=== PATIENT | male | born 1965 | race Caucasian/White ===

== ENCOUNTER 2024-10-17 10:15 | Outpatient (AMB) | payer OTHER, SELFPAY ==
--- OUTSIDE RECORDS SUMMARY | 2024-10-17 11:32 | XMS_ITS | Encounter Summary ---
Author Organization [facility] Address [address] [place] [address] Care Team Providers Care Collar Setter Name Role Phone Macho Milligan MD Primary Care Provider [phone] Encounter Details Date Type Department Care Team ([facility] st Contact Info) Description 12/18/2019 Lab Requisition [facility] [address] [place] [address] Venkata Nicolas PA-C [address] [place] [id number] Social History Tobacco Use Types Packs/Day Years Used Date Smoking Tobacco: Never Assessed Sex and Gender Information Value Date Recorded Sex Assigned at Male 04/05/2023 6:57 PM EDT Legal Sex Male 11:13 AM EDT Gender Identity Male 04/05/2023 6:57 PM EDT Sexual Orientation Homosexual (lesbian or larios) 1 6:57 PM EDT documented as of this encounter Plan of Treatment Not on file documented as of this encounter Procedures Procedure Name Priority Date/Time Associated Diagnosis Comments (REPORT) SARS COV-2 RNA (COVID-19), QUAL Routine 12/18/2019 11:13 AM EDT documented in this encounter Results * SARS CoV-2 RNA (COVID-19), Qual (12/18/2019 11:13 AM EDT) SARS CoV 2 RNA, Qual Not Detected Not Detected 12/20/2019 12:23 PM EDT WHITNEY BRYAN Comment: A Not Detected (negative) test result for this test means that SARS-CoV-2 RNA was not present in the specimen above the limit of detection. A negative result does not rule out the possibility of COVID-19 and should not be used as the sole basis for treatment or patient management decisions. ??If COVID-19 is still suspected, based on exposure history together with other clinical findings, re-testing should be considered in consultation with public health authorities. Laboratory test results should always be considered in the context of clinical observations and epidemiological data in making a final diagnosis and patient management decisions. ? Please review the 'Fact Sheets' and FDA authorized labeling available for health care providers and patients using the following websites: https://[email or web address].Sellsy/home/Covid-19/HCP/ [facility]/fact-sheet.html https://[email or web address].Sellsy/home/Covid-19/ Patients/[facility]/fact-sheet.html This test has been authorized by the FDA under an Emergency Use Authorization (EUA) for use by authorized laboratories. ? Due to the current public health emergency, [facility] is receiving a high volume of samples from a wide variety of swabs and media for COVID-19 testing. In order to serve patients during this public health crisis, samples from appropriate clinical sources are being tested. Negative test results derived from specimens received in non-commercially manufactured viral collection and transport media, or in media and sample collection kits not yet authorized by FDA for COVID-19 testing should be cautiously evaluated and the patient potentially subjected to extra precautions such as additional clinical monitoring, including collection of an additional specimen. Methodology: ??Nucleic Acid Amplification Test (NAAT) includes PCR or TMA ? Additional information about COVID-19 can be found at the [facility] website: [email or web address] Test Performed at: [facility] [address] [place], [place] ??[id number] Gurwinder Benoit M.D., Ph.D.,Director of Laboratories Microbiology Nasopharyngeal swab / Unknown 12/18/2019 11:13 AM EDT 12/18/2019 11:13 AM EDT Narrative WHITNEY BRYAN - 12/20/2019 12:23 PM EDT [facility] License number [id number] Venkata Nicolas PA-C BODY FLUIDS AND STOOLS OR DERABLES Final Result WHITNEY BRYAN documented in this encounter Visit Diagnoses Not on filedocumented in this encounter Care Teams Collar Setter Relationship Specialty Start Date End Date Macho Milligan MD PCP - General Internal Medicine 09/03/23 documented as of this encounter
--- OUTSIDE RECORDS SUMMARY | 2024-10-17 11:32 | XMS_ITS | Encounter Summary ---
Author Organization [facility] Address [address] [place] [address] Care Team Providers Care Graphite Mill Operator Name Role Phone Macho Milligan MD Primary Care Provider [phone] Encounter Details Date Type Department Care Team ([facility] Contact Info) Description 07/31/2023 Scanned Document [facility] Department of Pulmonology [address] [place] [id number] Pulmonary, Scan Social History Tobacco Use Types Packs/Day Years [...] on file documented as of this encounter Visit Diagnoses Not on filedocumented in this encounter Care Teams Graphite Mill Operator Relationship Specialty Start Date End Date Macho Milligan MD PCP - General Internal Medicine 09/03/23 documented as of this encounter
--- OUTSIDE RECORDS SUMMARY | 2024-10-17 11:32 | XMS_ITS | Data Portability ---
Author Organization [facility], [facility] Address [address] [place] [address] Care Team Providers Care Family Consumer Scientist Name Role Phone DUANE SAINI Referring Provider DUANE SAINI Primary Care Provider [phone] Assessment Encounter Date Assessment Date Assessment LastModified by Organization Details LastModified Time 09/05/2024 09/05/2024 Assessment: Improved sit-stand transfers and gait without cane for short distances. Plan: Continue per updated orders 2x/wk. [email or web address] Not available 09/05/2024 13:59:00 09/08/2024 09/08/2024 Assessment: Weekly increase with motion and functional activities including stairs and driving. Plan: Continue short course of rehab and progress independence with HEP. [email or web address] Not available 09/08/2024 12:23:50 09/12/2024 09/12/2024 Assessment: Weekly increase with motion and functional activities including stairs and driving. Plan: Continue 1 more visit and progress independence with HEP. Not available 09/12/2024 12:46:32 09/15/2024 09/15/2024 Assessment: Weekly increase with motion and functional activities including stairs and driving. Good results Plan: D/c to HEP. Not available 09/14/2024 20:56:04 Plan of Treatment Reminders Order Date Submit Date Provider Last Modified By Organization Details Last Modified Time Details Appointments RECHECK 10 2024 09:00A Aurora Lerma MD Not available Not available Not available Lab None recorded . Referral None recorded . Procedures None recorded . Surgeries None recorded . Imaging XR, hip + pelvis, unilater al, 2 or 3 view - 2v right hip, rm 202 2024 025 [facility], [address], [place], [address], 09/16/2024 09:22:18 Medication Orders None recorded . Patient TargetsNo targets recorded. Patient InstructionsNo instructions recorded. Reason for Referral None Reported. Results Created Date Observation Date Name Description Value Unit Range Abnormal Flag Note LastModifiedBy Organization Detail LastModifiedTime 08/17/1908/16/2024 imagi ng inter preta tion No observ ation [facility] ed. [facility] [address], [address], 08/17/2024 07:42:49 08/17/19 25 08/16/2024 imagi ng inter preta tion No observ ation record ed. [facility] [address], [address], 08/17/2024 07:42:37 09/03/19 25 09/02/2024 XR, hip + pelvi s, unila teral , 2 or 3 view http:/ [email or web address] ?Encry pted=s hAaTro YD8dLq bEUv6g %2BXZw aYqtaq 0bqfl% 2Fg9IQ a4ajBk vP9nXo QUaueC m3YtLR FvZlgJ JJ8mAn HZtai3 0o5794 AC0KqY [facility] gKiQtr MwF INTERFACE [facility] [address], [place], [address], 09/02/2024 09:28:15 09/03/19 25 09/02/2024 XR, hip + pelvi s, unila teral , 2 or 3 view http:/ [email or web address] ?Encry pted=s hAaTro YD8dLq bEUv6g %2BXZw aYqtaq 0bqfl% 2Fg9IQ a4ajBk vP9nXo QUaueC m3YtLR FvZlgJ [place] HZtai3 2t9439 AC0KqY niBUKC gKiQtr MwF INTERFACE [facility] [address], [place], [address], 09/02/2024 09:28:17 09/17/19 25 09/16/2024 XR, hip + pelvi s, unila teral , 2 or 3 view http:/ [email or web address] ?Encry pted=s hAaTro YD8dLq bEUv6g %2BXZw aYqtaq 0bqfl% 2Fg9IQ a4ajBk vP9nXo QUaueC m3YtLR FvZlgJ JJ8mAn HZtai3 3s3335 AC0KqY 3%2BFU qShKiQ trMwF INTERFACE [facility] [address], [place], [address], 09/16/2024 09:22:19 09/17/19 25 09/16/2024 XR, hip + pelvi s, unila teral , 2 or 3 view http:/ [email or web address] ?Encry pted=s hAaTro YD8dLq bEUv6g %2BXZw aYqtaq 0bqfl% 2Fg9IQ a4ajBk vP9nXo QUaueC m3YtLR FvZl JJ8mAn HZtai3 0a0744 AC0KqY 3%2BFU qShKiQ trMwF INTERFACE [facility] [address], [place], [address], 09/16/2024 09:22:21 Result Notes None recorded. Problems Name Problem SNOMED Code Status Onset Date Resolution Date Notes Provider Name and Address Organization Details Recorded Time Fracture of knee 092853416 Active 2023 NORMABEREKET mueller [place] - [facility] 09/05/202 4 17:30:48 Closed fracture proximal tibia, lateral condyle (plateau) 058163812 Active 2023 Regulo Montenegro MD [address], [place], [address], [facility] 4 17:55:59 Osteonecros is of head of femur 584765060 Active 2023 George Lerma MD [address], [place], [address], [facility] 4 11:19:39 Pain of right hip joint 3937946357652 02 Active 2023 MICHELLE MONTIEL [facility] 4 18:01:52 Problem Notes None recorded. Procedures Surgical History Date Name Laterality Status Provider Name and Address Organization Details Recorded Time 5 22523: Therapeutic Activities (1:1) completed Ortiz Maderaser, PT [address], [place], [address], [facility] 09/14/2024 20:52:16 5 27914 Therapeutic Exercise (1:1) completed Ortiz Maderaser, PT [address], [place], [address], [facility] 09/14/2024 20:52:16 5 17633: Gait training completed Ortiz De Paz, PT [address], [place], [address], [facility] 09/14/2024 20:52:16 5 63196: Therapeutic Activities (1:1) completed Ortiz Pyser, PT [address], [place], [address], [facility] 09/12/2024 12:50:40 5 71576 Therapeutic Exercise (1:1) completed Ortiz Maderaser, PT [address], [place], [address], [facility] 09/09/2024 07:45:16 5 86384: Gait training completed Ortiz De Paz, PT [address], [place], [address], [facility] 09/12/2024 12:46:52 5 05808: Therapeutic Activities (1:1) completed Nolberto Carter, AT [address], [place], [address], [facility] 09/08/2024 12:18:51 5 49915 Therapeutic Exercise (1:1) completed Nolberto Carter, AT [address], [place], [address], [facility] 09/08/2024 12:20:10 5 33259: Gait training completed Nolberto Carter, AT [address], [place], [address], [facility] 09/08/2024 12:18:51 5 16632: Therapeutic Activities (1:1) completed Nolberto Carter, AT [address], [place], [address], [facility] 09/05/2024 13:54:03 5 04054 Therapeutic Exercise (1:1) completed Nolberto Carter, AT [address], [place], [address], [facility] 09/05/2024 13:58:13 5 54161: Gait training completed Nolberto Carter, AT [address], [place], [address], [facility] 09/05/2024 13:54:02 5 32331: Manual therapy completed Nolberto Carter, AT [address], [place], [address], [facility] 09/05/2024 13:54:03 5 78767: Therapeutic Activities (1:1) completed Nolberto Carter, AT [address], [place], [address], [facility] 09/01/2024 08:31:15 5 53450 Therapeutic Exercise (1:1) completed Nolberto Carter, AT [address], [place], [address], [facility] 09/01/2024 08:30:42 5 29557: Gait training completed Nolberto Carter, AT [address], [place], [address], [facility] 09/01/2024 08:30:57 5 00431: Manual therapy completed Nolberto Carter, AT [address], [place], [address], [facility] 09/01/2024 08:30:50 5 05924 Therapeutic Exercise (1:1) completed Johnson Bender, PT [address], [place], [address], [facility] 08/28/2024 09:47:17 5 41423: Low complexity PT Eval completed Johnson Bender, PT [address], [place], [address], [facility] 08/28/2024 09:47:19 5 05464 Therapeutic Exercise (1:1) completed Ortiz De Paz, PT [address], [place], [address], [facility] 07/21/2024 20:02:04 5 27400: Low complexity PT Eval completed Ortiz De Paz, PT [address], [place], [address], [facility] 07/21/2024 20:02:10 Imaging Results Imaging Date Name Status LastModified by Organization Details LastModified Time 08/16/2024 imaging interpretation completed [email or web address] [address] [place], [address], 08/17/2024 07:42:49 08/16/2024 imaging interpretation completed [email or web address] [address], [address], 08/17/2024 07:42:37 09/02/2024 XR, hip + pelvis, unilateral, 2 or 3 view completed INTERFACE [facility] [address], [place], [address], 09/02/2024 09:28:15 09/02/2024 XR, hip + pelvis, unilateral, 2 or 3 view completed INTERFACE [facility] [address], [place], [address], 09/02/2024 09:28:17 09/16/2024 XR, hip + pelvis, unilateral, 2 or 3 view completed [facility] [address], [place], [address], 09/16/2024 09:22:19 09/16/2024 XR, hip + pelvis, unilateral, 2 or 3 view completed [facility] [address], [place], [address], 09/16/2024 09:22:21 Procedure Notes None recorded. Medical Equipment None Reported. Allergies Allergen ID Allergen Name Allergen Category Reaction Reaction Severity Criticality Documentation Date Start Date Code Code System Note Provider Name and Address Organization Details Recorded Time 153709 tetracycl ine medicatio n hives mild Not available 02/23/2024 44368 RxNorm Dezarihéctor mueller [place] - [facility] 14:51:32 387726 erythromy kelley medicatio n abdominal pain mild Not available 02/23/2024 4053 RxNorm Sharmaine mueller [place] [facility] 14:51:32 917025 Penicilli n Not available hives moderate Not available 02/23/2024 51355 RxNorm Deriorihéctor mueller [place] - [facility] 4 14:51:32 Medications Name Sig Start Date Stop Date Status Note LastModified by Organization Details LastModified Time quetiapine 25 mg tablet TAKE 1 TO 2 TABLETS BY MOUTH AT BEDTIME NEEDED FOR SLEEP active Not Available Not Available No t Available celecoxib 200 mg capsule TAKE 1 CAPSULE BY MOUTH EVERY DAY active Not Available Not Available No t Available prednisone 10 mg tablet TAKE 4 TABLETS BY MOUTH DAILY. 02/17 completed Not Available Not Available Not Available doxycycline hyclate 100 mg capsule TAKE 1 CAPSULE BY MOUTH TWICE A DAY active Not Available Not Available No t Available ropinirole 1 mg tablet 2 tablets twice a day by oral route. active Not Available Not Available No t Available divalproex 250 mg tablet,joe yed release active Not Available Not Available Not Available azithromyci n 250 mg tablet TAKE 2 TABLETS BY MOUTH TODAY, THEN TAKE 1 TABLET DAILY FOR 4 DAYS DIRECTED active Not Available Not Available No t Available benzonatate 200 mg capsule TAKE 1 CAPSULE BY MOUTH EVERY 8 HOURS NEEDED FOR COUGH 03/29 completed Not Available Not Available Not Available metoprolol succinate ER 50 mg tablet,exte nded release 24 hr TAKE 1 TABLET BY MOUTH DAILY active Not Available Not Available No t Available valacyclovi r 1 gram tablet 1 tablet every day by oral route. active Not Available Not Available No t Available prednisone 20 mg tablet TAKE 2 TABLETS BY MOUTH DAILY 5 DAYS active Not Available Not Available No t Available sertraline 100 mg tablet 1 tablet every day by oral route. 03/29 completed Not Available Not Available Not Available diphenoxyla te-atropine 2.5 mg-0.025 mg tablet TAKE 1 TABLET BY MOUTH EVERY 6 HOURS NEEDED DIARRHEA 02/17 completed Not Available Not Available Not Available amlodipine 5 mg tablet TAKE 1 TABLET BY MOUTH EVERY DAY active Not Available Not Available No t Available tramadol 50 mg tablet TAKE 1 TO 2 TABLETS BY MOUTH EVERY 6 HOURS NEEDED FOR MILD PAIN. DO NOT EXCEED 8 TABLETS (400MG) PER DAY. active Not Available Not Available No t Available bupropion HCl SR 100 mg tablet,12 hr sustained-r elease active Not Available Not Available Not Available tamsulosin 0.4 mg capsule TAKE 1 CAPSULE BY MOUTH DAILY active Not Available Not Available No t Available benzonatate 100 mg capsule TAKE 2 CAPSULE (ORAL) 2 TO 3 TIMES PER DAY (COUGH) FOR 5 DAYS active Not Available Not Available No t Available ropinirole 2 mg tablet TAKE 1 TABLET BY MOUTH TWICE A DAY active Not Available Not Available No t Available cephalexin 500 mg capsule TAKE 1 CAPSULE BY MOUTH FOUR TIMES A DAY active Not Available Not Available No t Available pantoprazol e 40 mg tablet,joe yed release TAKE 1 TABLET BY MOUTH DAILY DIRECTED active Not Available Not Available No t Available buspirone 10 mg tablet active Not Available Not Available Not Available divalproex ER 500 mg tablet,exte nded release 24 hr TAKE 1 TABLET BY MOUTH EVERY DAY active Not Available Not Available No t Available sertraline 25 mg tablet active Not Available Not Available Not Available gabapentin 100 mg capsule TAKE TWO CAPSULES DAILY AT BEDTIME active Not Available Not Available No t Available cefuroxime axetil 500 mg tablet TAKE 1 TABLET BY MOUTH TWICE A DAY FOR 10 DAYS 02/17 completed Not Available Not Available Not Available levofloxaci n 500 mg tablet active Not Available Not Available Not Available ipratropium bromide 42 mcg (0.06 %) nasal spray PLEASE SEE ATTACHED FOR DETAILED DIRECTION S active Not Available Not Available No t Available ondansetron 4 mg disintegrat ing tablet Place 1 tablet every 6 hours by transling ual route for 10 days. active Not Available Not Available No t Available losartan 100 mg tablet TAKE 1 TABLET BY MOUTH DAILY active Not Available Not Available No t Available lamotrigine 100 mg tablet active Not Available Not Available Not Available oxycodone 5 mg tablet TAKE 1 TO 2 TABLETS BY MOUTH EVERY 4 HOURS NEEDED FOR SEVERE PAIN active Not Available Not Available No t Available bupropion HCl SR 200 mg tablet,12 hr sustained-r elease TAKE 1 TABLET BY MOUTH EACH AT 8 AM 02/17 completed Not Available Not Available Not Available rosuvastati n 5 mg tablet TAKE 1 TABLET BY MOUTH DAILY active Not Available Not Available No t Available quetiapine 50 mg tablet TAKE 1 TABLET BY MOUTH EVERYDAY AT BEDTIME active Not Available Not Available No t Available levocetiriz ine 5 mg tablet active Not Available Not Available Not Available Dulera active Not Available Not Availa ble Not Available sodium,pota ssium,mag sulfates 17.5 gram-3.13 gram-1.6 gram oral soln USE DIRECTED BY MOUTH 02/17 completed Not Available Not Available Not Available Combivent Respimat 20 mcg-100 mcg/actuati on solution for inhalation TAKE 2 PUFF (INHALATI ON) 2 TIMES PER DAY ( NEEDED FOR DYSPNEA) FOR 14 DAYS active Not Available Not Available No t Available Trelegy Ellipta 200 mcg-62.5 mcg-25 mcg powder for inhalation INHALE 1 PUFF EVERY DAY BY INHALATIO N ROUTE active Not Available Not Available No t Available BinaxNOW COVID-19 Ag Self Test kit TEST DIRECTED TODAY 02/17 completed Not Available Not Available Not Available Vitals Date Recorded Body height Body mass index (BMI) Body weight Provider Name and Address Organization Details Last Updated DateTime 09/16/2024 180.34 cm 35.7 kg/m2 029244.65 g Lila Thibodeaux [facility] 09/16/2024 09:18:04 Social History Question Answer Notes LastModified by Organizat ion Details LastModified Time Tobacco Smoking Status [facility] 02/23/2024 14:51:33 How Many Times Per Week Do You Consume Alcohol? Less Than 1 Time Per Week [email or web address] Information not available 02/23/2024 Do You Or Have You Ever Used E-cigarettes Or Vape? Never Used Electronic Cigarettes [email or web address] Information not available 02/23/2024 When Did You Quit Smoking? 11-15yearssinc elastcigarette Information not available 02/23/2024 What Is Your Relationship Status? Single Information not available 02/23/2024 Do You Use Any Illicit Or Recreational Drugs? No [email or web address] Information not available 02/23/2024 Do You Or Have You Ever Used Any Other Forms Of Tobacco Or Nicotine? No [email or web address] Information not available 02/23/2024 Sex: Unknown Functional Status None recorded. Mental Status None recorded. Family History Nothing Reported. Medical History Condition Response Anxiety/Depression Y Acid Reflux (GERD) Y Allergies/Hayfever Y Diabetes Y Asthma Y Hepatitis Y Hypertension Y Past Encounters Encounter ID Performer Location Encounter Start Date Encounter Closed Date Diagnosis/Indication Diagnosis SNOMED-CT Code Diagnosis ICD10 Code Diagnosis Note [id number] MD [facility] Port[facility] [address] [place] [address] 02/18/2024 16:27:33 03/14/2024 12:55:58 Fracture of knee 506842966 S82.90XD Closed fra cture proximal tibia, lateral condyle (plateau) 970727204 S82.121A [id number] Yaron Boucher PA-C [facility] [address] [place] [address] 02/23/2024 14:38:26 02/23/2024 15:59:17 Pain of right hip joint 6926022387 19528 M25.091 [id number] George Lerma MD [facility] [address] [place] [address] 03/16/2024 17:24:49 04/08/2024 08:42:26 Osteonecrosis of head of femur 880182988 M87.859 Pain of ri ght hip joint 1085837069 03497 M25.472 [id number] Regulo Montenegro MD [facility] [address] [place] [address] 04/01/2024 10:59:46 04/26/2024 09:03:54 Fracture of knee 598706027 S82.90XD [id number] Stephanie Alanis PA-C [facility] [address] [place] [address] 05/03/2024 16:55:53 05/24/2024 16:48:47 Pain of bilateral hands 7990322139 [id number] M79.641 M79.094 [id number] Pilo Auguste PA-C [facility] [address] [place] [address] 05/13/2024 15:06:56 06/14/2024 15:23:31 Pain of shoulder region 27069047 M25.511 M25.512 Localized, primary osteoarthritis of the shoulder region 170674795 M19.462 [id number] Ortiz De Paz, PT [facility] [address] [place] [address] 07/22/2024 10:39:24 07/22/2024 13:17:04 Osteoarthritis of hip 581802525 M16.11 [id number] George Lerma MD [facility] [address] [place] [address] 08/11/2024 13:46:28 08/23/2024 04:08:31 [id number] Loyda Bolivar, DIE BAKER [facility] [address] [place] [address] 08/11/2024 13:17:28 08/30/2024 04:03:36 Osteoarthritis of right hip joint 7776188849 01281 M16.11 [id number] Johnson Bender, PT [facility] [address] [place] [address] 08/29/2024 13:27:52 08/29/2024 14:22:25 Aftercare 650987106 Z47.1 Z96.968 [id number] Yaron Boucher PA-C [facility] [address] [place] [address] 09/02/2024 09:15:50 09/22/2024 11:25:13 Postoperative visit 187403465 Z48.89 [id number] Nolberto Carter, AT [facility] [address] [place] [address] 09/01/2024 07:45:14 09/01/2024 08:37:04 Aftercare 390226916 Z47.1 Z96.009 [id number] Nolberto Carter, AT [facility] [address] [place] [address] 09/05/2024 10:42:01 09/05/2024 11:49:06 Aftercare [id number] Z47.1 Z96.350 [id number] Nolberto Carter, AT [facility] [address] [place] [address] 09/08/2024 11:17:44 09/08/2024 12:39:05 Aftercare [id number] Z47.1 Z96.782 [id number] Ortiz Pyser, PT [facility] [address] [place] [address] 09/12/2024 11:40:45 09/12/2024 13:53:56 Aftercare [id number] Z47.1 Z96.517 [id number] Ortiz Maderaser, PT [facility] [address] [place] [address] 09/15/2024 13:35:07 09/15/2024 14:51:12 Aftercare [id number] Z47.1 Z96.583 [id number] Yaron Boucher PA-C [facility] [address] [place] [address] 09/16/2024 09:01:31 10/03/2024 18:10:59 Postoperative visit 887770803 Z48.89 History of total replacement of right hip joint 1937449421 44161 Z96.641 Health Concerns Section Related Observation LastModified by Organization Detai ls LastModified Time None Recorded Concern Status LastModified by Organization Details LastModified Time None Recorded Advance Directives Directive None Recorded Payers Encounter Date Sequence Insurance Name Policy Number Policy Zaragoza Covered Member ID Zaragoza Member ID Guarantor Name 09/05/[address] [place] [address] [id number] Christopher Dumont [id number] Christopher Dumont 09/08/[address] [place] [address] [id number] Christopher Dumont [id number] Christopher Dumont 09/12/[address] [place] [address] [id number] Christopher Dumont [id number] Christopher Dumont 09/15/[address] [place] [address] [id number] Christopher Dumont [id number] Christopher Dumont 09/16/[address] [place] [address] [id number] Christopher Dumont [id number] Christopher Dumont Notes Date Note Type Note Provider Name and Address Organization Details Recorded Time 09/05/2024 text/html Patient presents today reporting {{0 1 2* 3 4 5 6 7 8 9 10 }}/10 pain. Pt reports being seen by PAC/MD office in follow-up and pleased with healing, instructed to continue formal therapy per updated orders and post-op protocol. Nolberto Carter, AT [address], [place], [address], [facility] 09/05/2024 13:59:27 09/08/2024 text/html Patient presents today reporting {{0 1* 2 3 4 5 6 7 8 9 10 }}/10 pain. Nolberto Carter, AT [address] [facility], [place], [address], [facility] 09/08/2024 12:24:18 09/12/2024 text/html Patient presents today reporting no signif pain. Little sore from ~350 [address] . Resumed driving. Request d/c at end of week Ortiz De Paz, PT [address], [place], [address], [facility] 09/12/2024 12:51:30 09/15/2024 text/html Patient presents today reporting no pain. Ready for d/c, f/u w PA-C tomorrow 09/16/24 Ortiz De Paz, PT [address], [place], [address], [facility] 09/15/2024 14:33:06 09/16/2024 text/html I am seeing the patient today under the supervision of {{Maria Guadalupe Rowley*}}who was available but who did not see the patient. HPI: Patient returns follow-up 4 weeks postop right total hip replacement. Patient seems to be progressing well with therapy. Patient's pain seems to be controlled. Past family, medical, social history and review of systems has been reviewed, updated and is located in the patient? s chart. Examination: No significant swelling warmth erythema about the right total hip. Incision is healing well. Range of motion of the right total hip: Flexion 90, internal {{10 15* 20}}, and external {{10 15* 20}}. Good strength about the right total hip. Peripheral, vascular, lymphatic examination, skin, neurological, coordination, reflexes, sensation are within normal limits. X-rays ordered, obtained and reviewed at [facility] 2 views of the right total hip demonstrate good implant interfaces in good alignment. Impression: 4 weeks status post and right total hip replacement Plan: Reviewed x-rays. Reviewed postop protocols with the patient today in the office. Reviewed total hip precautions. Continue with therapy. Patient can wean from a cane as safe. Follow-up in 2 months to recheck the total hip replacement. He is to return to work on 09/19/2024. He will be full duty with no restrictions. Yaron Boucher PA-C [address] [facility] [address], [place], [address], [facility] [facility] [place] [place] [facility] 09/16/2024 09:32:33
--- OUTSIDE RECORDS SUMMARY | 2024-10-17 11:32 | XMS_ITS | Clinical Summary ---
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 Active tamsulosin (FLOMAX) 0.4 MG capsule Take 0.4 mg by mouth daily. Active valACYclovir (VALTREX) 1000 MG tablet Take 1,000 mg by mouth 2 (two) times a day. Active rOPINIRole (REQUIP) 1 MG tablet Take 1 mg by mouth 3 (three) times a day. Active rosuvastatin (CRESTOR) 5 MG tablet Take 5 mg by mouth daily. Active metoPROLOL TARTRATE (LOPRESSOR) 50 MG tablet Take 50 mg by mouth 2 (two) times a day. Active PANTOprazole (PROTONIX) 40 MG EC tablet Take 40 mg by mouth every morning before breakfast. Active losartan (COZAAR) 100 MG tablet Take 100 mg by mouth daily. Active amLODIPine (NORVASC) 5 MG tablet Take 5 mg by mouth daily. Active sertraline (ZOLOFT) 100 MG tablet Take 100 mg by mouth daily. Active divalproex (DEPAKOTE) [address] Take 250 mg by mouth 3 (three) times a day. Active mometasone-form oterol (DULERA) 100-5 MCG/ACT inhalerIndicati ons:Wheezing Inhale 2 puffs 2 (two) times a day. 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 Starting in 40s for 10 yrs in stopping in 2013 Family History Medical History Relation Name Comments Lung cancer Father Pancreatic cancer Father Lung cancer Mother Relation Name Status Comments Father Mother Social History Tobacco Use Types Packs/Day Years Used Date Smoking Tobacco: Former Cigarettes 0.5 2 2 012 - 2013 Smokeless Tobacco: Former Tobacco Cessation:Counseling Given: Not Answered Sex and Gender Information Value Date Recorded Sex Assigned at Male 04/05/2023 6:57 PM EDT Legal Sex Male 11:13 AM EDT Gender Identity Male 04/05/2023 6:57 PM EDT Sexual Orientation Homosexual (lesbian or larios) 1 6:57 PM EDT Last Filed Vital Signs Vital Sign Reading Time Taken Comments Blood Pressure 118/70 09/03/2023 1:54 PM EDT Pulse 74 09/03/2023 1:54 PM EDT Temperature - - Respiratory Rate - - Oxygen Saturation 98% 09/03/2023 1:54 PM EDT Inhaled Oxygen Concentration - - Weight 107 kg (235 lb) 09/03/2023 1:54 PM EDT Height 180.3 cm (5' 11 ) 09/03/2023 1:54 PM EDT Body Mass Index 32.78 09/03/2023 1:54 PM EDT Plan of Treatment Health Maintenance Due Date Last Done Comments Hepatitis C Virus Screening 1966 HIV Screening 08/22/1979 DTaP/Tdap/Td Vaccines (1 - Tdap) 1985 Hepatitis B Vaccines (1 of 3 - 19+ 3-dose series) 1985 Colonoscopy 08/22/2011 Pneumococcal Vaccines 50+ (1 of 1 - PCV) 2016 Zoster (Shingles) Vaccine (1 of 2) 2016 COVID-19 Vaccine (3 - 2023-2 5 season) 2024 10/31/2020, 10/03/2020 Influenza Vaccine 01/13/2025 03/22/2020, , 02/06/2018, Additional history exists Insurance [facility] [facility] Care Teams Tractor Crane Engineer Relationship Specialty Start Date End Date Macho Milligan MD PCP - General Internal Medicine 09/03/23
--- OUTSIDE RECORDS SUMMARY | 2024-10-17 11:32 | XMS_ITS | Clinical Summary ---
Author Organization [facility] Address [address] [place] [address] Phone Care Team Providers Care Journeyman Powerhouse Operator Name Role Phone Macho Milligan MD Primary Care Provider Surgical History Surgery Date Site/Laterality Comments TONSILLECTOMY PROCEDURE:TONSILLECTOMY Medical History Medical History Date Comments Right elbow pain 2009 DX:Right elbow pain Herpes DX:Herpes Family History Medical History Relation Name Comments Cancer Father Cancer Mother Cancer Paternal Grandmother Relation Name Status Comments Father Alive Mother Paternal Grandmother Social History Tobacco Use Types Packs/Day Years Used Date Smoking Tobacco: Former Smokeless Tobacco: Never Alcohol Use Standard Drinks/Week Comments Not Currently 0 (1 standard drink = 0.6 oz pur e alcohol) Sex and Gender Information Value Date Recorded Sex Assigned at Not on file Legal Sex Male 11:08 PM EST Gender Identity Not on file Sexual Orientation Not on file Obstetrics History Last Filed Vital Signs Vital Sign Reading Time Taken Comments Blood Pressure 125/80 10/06/2023 9:18 AM EDT Sitting Right arm Pulse 68 10/06/2023 9:18 AM EDT Temperature - - Respiratory Rate - - Oxygen Saturation - - Inhaled Oxygen Concentration - - Weight 111 kg (244 lb) 10/06/2023 9:18 AM EDT Height 180.3 cm (5' 11 ) 10/06/2023 9:1 8 AM EDT Body Mass Index 34.03 10/06/2023 9:18 AM EDT Plan of Treatment Health Maintenance Due Date Last Done Comments Diabetes: Annual Foot Exam 1976 Diabetes: Annual Retina Eye Exam 1976 DTaP,Tdap,and Td Vaccines (1 - Tdap) 1985 Hepatitis B Vaccines (1 of 3 - 19+ 3-dose series) 1985 Pneumococcal Vaccine: 50+ Years (1 of 2 - PCV) 1985 Pneumococcal Vaccine: Pediatrics (0 to 5 Years) and At-Risk Patients (6 to 64 Years) (1 of 2 - PCV) 1985 Diabetes: Annual GFR (Glomerular Filtration Rate) 05/20/2020 05/20/2019, 12/03/2018 Colorectal Cancer Screening: Colonoscopy 05/18/2022 Depression Screening 05/18/2022 HIV Screening 05/18/2022 Hepatitis C Screening 05/18/2022 Social Influencers of Health Screening 05/18/2022 Hypertension/CHF/CAD Annual BMP Blood Test 05/24/2022 05/20/2019, 12/03/2018 Cholesterol Screening (Lipid Panel) 12/04/2023 12/03/2018 COVID-19 Vaccine ( season) 2024 10/31/2020, 10/03/2020 Diabetes: Annual Urine Albumin-Creatinine Ratio (uACR) 08/09/2024 Diabetes: Blood Sugar Control Test (HGBA1C) 08/09/2024 Influenza Vaccine (Season Ended) 2025 03/22/2020, 02/25/2019, 02/06/2018, Additional history exists Zoster Vaccines Completed 02/06/2018, 11/18/2017 HIB Vaccines Aged Out No longer eligi ble based on patient's age to complete this topic HPV Vaccines Aged Out No longer eligi ble based on patient's age to complete this topic Hepatitis A Vaccines Aged Out No long er eligible based on patient's age to complete this topic IPV Vaccines Aged Out No longer eligi ble based on patient's age to complete this topic MMR Vaccines Aged Out No longer eligi ble based on patient's age to complete this topic Meningococcal ACWY Vaccine Aged Out N o longer eligible based on patient's age to complete this topic Meningococcal B Vaccine Aged Out No l onger eligible based on patient's age to complete this topic RSV Immunization Patients Under 20 months Aged Out No longer eligible based on patient's age to complete this topic Varicella Vaccines Aged Out No longer eligible based on patient's age to complete this topic Insurance [facility] MEDICAID - [place] Care Teams Journeyman Powerhouse Operator Relationship Specialty Start Date End Date Macho Milligan MD [address] [place] [address] PCP - General Internal Medicine 10/19/15
--- NOTE | 2024-10-17 13:26 | MHC.OFFVISWM ---
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 BMI 33.8 Allergies Penicillins Allergy (Mild, Verified 10/17/24 13:29) Hives tetracycline Allergy (Mild, Verified 10/17/24 13:29) Stomach Upset erythromycin Allergy (Mild, Uncoded 10/17/24 13:29) upset stomach Medication List - Last Reconciled 10/17/24 by Palomo Salgado MD amlodipine 5 mg PO DAILY cholecalciferol (vitamin D3) 125 mcg PO DAILY divalproex 500 mg PO BID [id number]-[id number]-yfxyxlvm 200-62.5-25 mcg (Trelegy Ellipta) 1 inh inhalation DAILY gabapentin 100 mg PO DAILY losartan 100 mg PO DAILY pantoprazole 40 mg PO DAILY quetiapine 50 mg PO DAILY ropinirole 2 mg PO BID rosuvastatin 5 mg PO DAILY tamsulosin 0.4 mg PO DAILY valacyclovir 500 mg PO BID HPI HPI TV 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 BMI 33.8: Details: Start time: 1.18pm, End time: 1.58pm I spent 35 minutes speaking with the patient on the phone plus an additional 5 minutes reviewing and updating records for a total of 40 minutes HPI Comments Details: Previous weight loss efforts: Farzad LEIVA (no WL) Wakes up: 5am, Sleeps: 9pm Breakfast: 6am (yogurt, or oatmeal) Lunch: 12pm (yogurt, or Slimfast) Dinner: 6pm (pork roast, salad, vegetables, soup) Snacks: 8pm (Pretzels, popcorn, pudding) Exercise: none Beverages: Coffee (1 cup/d with Splenda), tea: none, soda: Coke Zero, juice: none, ETOH: none PFSH Medical History (Updated 10/17/24 @ 13:53 by Palomo Salgado MD) Asthma Non-insulin dependent type 2 diabetes mellitus Herpes, genital DJD (degenerative joint disease) BPH (benign prostatic hyperplasia) Restless leg syndrome Bipolar disorder GERD (gastroesophageal reflux disease) Hyperlipidemia Hypertension BMI 33.0-33.9,adult Obesity Surgical History (Updated 10/12/24 @ 10:19 by Deepali Marc CMA) History of total right hip replacement Family History (Updated 10/12/24 @ 10:20 by Deepali Marc CMA) Mother Cancer Diverticulosis Father Cancer Kidney disease Liver disease Social History (Updated 10/12/24 @ 10:21 by Deepali Marc CMA) Alcohol intake: former Patient Tobacco Use Status: Former Tobacco user Years Smoked: 15 yrs Telehealth Telehealth Telehealth Platform: Telephone Location of provider rendering services: practice address Location of patient: address on file Patient Identification confirmed using: Name, : Yes Telehealth method: voice only Patient verbally consented to treatment: Yes Patient verbally consented to billing insurance company: Yes Patient informed of any privacy concerns related to visit: Yes Minutes spent on Phone/Video with Pt.: 40 Assessment & Plan Assessment & Plan (1) Obesity: Code(s): E66.9 - Obesity, unspecified Category: Medical Qualifiers: Obesity type: due to excess calories Obesity classification: adult class 1 (BMI 30 - 34.9) Serious obesity comorbidity presence: with serious comorbidity Body mass index: BMI 33.0-33.9 Qualified Code(s): E66.811 - Obesity, class 1; E66.09 - Other obesity due to excess calories; Z68.33 - Body mass index [BMI] 33.0-33.9, adult Plan: 1. We discussed in detail the available therapeutic options: 1) his insurance requires participation in our lifestyle intervention program for 3 months before use of anti-obesity medications is considered unless he has a definitive diagnosis of diabetes. We will obtain his recent blood work from [facility] and his PCP records. 2) We also discussed our lifestyle program that includes a meal and exercise plan. A 10% TBWL is expected on average in 3 months. 3) We also discussed about the lap sleeve gastrectomy. I emphasized the importance of close follow-up, adherence to instructions and good communication. The surgery does not replace the need to change your lifestlyle which is the cause of the obesity problem. The surgery provides the motivation to try again to change your lifestyle, it reduces the appetite and make the transition to a better lifestyle easier and doubles the amount of weight you would lose compared to doing the lifestyle change without the surgery. You will need to be on a liquid diet with protein shakes for 2 weeks before surgery to maximize weight loss and boost your nutritional status to recover better from surgery and also for the first two weeks after surgery to let the stomach heal before we introduce other foods. After the first 2 weeks we will introduce protein bars and soft foods like scrambled eggs, cottage cheese and yogurt and after the 6th week will introduce meat, fish and cooked vegetables in small amounts. Over time you should be able to eat everything in small amounts. Side effects like nausea, vomiting, heartburn or abdominal pain are not common in the practice unless you are not following in the practice. This operation requires lifetime commitment to following in our practice and communication with me. You will much less weight and experience side effects if you don?t communicate or not following in the practice. Complications are rare and in our practice is about 1/10 of the national average. The patient wishes to try a different GLP-1 agonist if he qualifies.
== END 2024-10-17 13:59 | disposition home or self-care (01) ==
LOC: HO.HBS 10:15
PROVIDERS: Visit Provider Surgery
DX: E66.811 Obesity, class 1 (principal); E66.09 Other obesity due to excess calories; Z68.33 Body mass index [BMI] 33.0-33.9, adult
CPT/HCPCS: 99203

== ENCOUNTER → 2024-10-17 10:15 | Outpatient (BNVA) | payer OTHER, SELFPAY | PROVIDERS: Visit Provider Surgery ==